=== PATIENT | male | born 1970 | race Caucasian/White ===

== ENCOUNTER 2017-04-06 16:12 | Emergency (ER) | payer SELFPAY ==
[~2017-04-06] VITALS: Ht 177.8 cm; Wt 113.4 kg
[2017-04-06 16:50] VITALS: BP 134/96
--- NOTE | 2017-04-06 16:56 | NUR ---
PER DR ARAUZ XRAY ORDERED AND PT SEND BACK TO LOBBY
--- NOTE | 2017-04-06 17:18 | NUR ---
PT BROUGHT BACK FROM X-RAY AND PLACED IN BED 10.
--- NOTE | 2017-04-06 17:20 | NUR ---
46 M BIB SELF WITH C/O 5/10 "SHARP" NON RADIATING RT KNEE PAIN, 10/10 PAIN UPSON MOVEMENT; SWELLING NOTED TO RT KNEE; SKIN AND CMS INTACT TO BL LEGS; LIMITED ROM TO RT KNEE; PT STS HE WAS WORKING ON HIS CAR LAST NIGHT AND "TWISTED HIS KNEE AND HEAR A POP"; PT IS AOX4, RR ARE EVEN AND UNLABORED; PT IN WHEELCHAIR BY BEDSIDE; PT ASKED TO BE PLACE IN WHEELCHAIR NOT GURFAITH; NAD; ER MD AWARE OF PT STATUS; NAD; WILL CONTINUE TO MONITOR.
[2017-04-06 18:06] VITALS: BP 136/90
--- NOTE | 2017-04-06 18:06 | NUR ---
Patient discharged with v/s stable. Written and verbal after care instructions given and explained. Patient alert, oriented and verbalized understanding of instructions. Wheel Chair Assisted to car. All questions addressed prior to discharge. ID band removed. Patient advised to follow up with PMD. Rx of TRAMADOL HYDROCHLORIDE 50MG given. Patient educated on indication of medication including possible reaction and side effects. Opportunity to ask questions provided and answered.
== END 2017-04-06 18:06 | disposition home or self-care (01) ==
LOC: MED 16:12
DX: S83.91XA Sprain of unspecified site of right knee, initial encounter (principal); Z88.2 Allergy status to sulfonamides; X58.XXXA Exposure to other specified factors, initial encounter; Y93.89 Activity, other specified; Y92.89 Other specified places as the place of occurrence of the external cause; Y99.8 Other external cause status
CPT/HCPCS: 73562; 99284